=== PATIENT | female | born 1960 | race American Indian/Alaskan Native ===

== ENCOUNTER 2019-07-23 23:07 | Inpatient (IN) | payer SELFPAY ==
[2019-07-23] MEDS ORDERED: ATIVAN IV ONE (23:24)
[2019-07-23] MEDS ORDERED: ATIVAN ONE (23:24)
[2019-07-23] MEDS ORDERED: NACL 0.9% 1000 ML 1,000 ML IV ONE (23:32)
[2019-07-24 00:12] LABS: Hemoglobin 17.9 gm/dl (10.1-14.3); Mean Corpuscular HGB Conc 32 % (30-34); Mean Corpuscular Volume 104 fl (79-97); Platelet Count 521 K/mm3 (140-440); Red Blood Count 5.39 M/mm3 (3.65-5.03); Red Cell Distribution Width 16.4 % (13.2-15.2)
--- NOTE | 2019-07-24 00:15 | XRay Report ---
CHEST 1 VIEW 07/23/2019 11:39 PM INDICATION / CLINICAL INFORMATION: Altered Mental Status. COMPARISON: None available. FINDINGS: SUPPORT DEVICES: None. HEART / MEDIASTINUM: No significant abnormality. LUNGS / PLEURA: No significant pulmonary or pleural abnormality. No pneumothorax. ADDITIONAL FINDINGS: No significant additional findings. IMPRESSION: 1. No acute findings. Signer Name: Tej Young MD Signed: 07/24/2019 12:11 AM Workstation Name: [id number]
[2019-07-24 00:29] LABS: Calcium 9.5 mg/dL (8.4-10.2)
[2019-07-24 00:31] LABS: Hematocrit 55.9 % (30.3-42.9)
[2019-07-24] MEDS ORDERED: NACL 0.9% 1000 ML 1,000 ML IV ONE ×3 (00:34→02:00)
[2019-07-24] MEDS ORDERED: HumuLIN R IV ONE (00:36)
[2019-07-24] MEDS ORDERED: HumuLIN R 100 UNITS in NACL 0.9% 99 ML IV SCH (01:00)
--- NOTE | 2019-07-24 01:04 | Cat Scan Report ---
CT HEAD WITHOUT CONTRAST INDICATION / CLINICAL INFORMATION: Altered Mental Status. TECHNIQUE: All CT scans at this location are performed using CT dose reduction for ALARA by means of automated e xposure control. COMPARISON: None available. FINDINGS: Slightly limited secondary to motion artifact. HEMORRHAGE: None. EXTRA-AXIAL SPACES: Normal in size and morphology for the patient's age. VENTRICULAR SYSTEM: Normal in size and morphology for the patient's age. CEREBRAL PARENCHYMA: No significant abnormality. No acute territorial infarct. MIDLINE SHIFT OR HERNIATION: None. CEREBELLUM / BRAINSTEM: No significant abnormality. ORBITS: Normal as visualized. SOFT TISSUES of HEAD: No significant abnormality. CALVARIUM: No significant abnormality. PARANASAL SINUSES / MASTOID AIR CELLS: Normal as visualized. ADDITIONAL FINDINGS: None. IMPRESSION: 1. No acute intracranial abnormality. Signer Name: Tej Young MD Signed: 07/24/2019 12:59 AM Workstation Name: [id number]
[2019-07-24 01:15] LABS: Bacteria,Urine 2+ /HPF (Negative); Bilirubin,Urine NEG (Negative); Blood,Urine MOD (Negative); Color,Urine Yellow (Yellow); Mucus,Urine 1+ /HPF; Urobilinogen,Urine < 2.0 mg/dL (<2.0)
[2019-07-24 01:19] LABS: Amphetamine Screen,Urine PRESUMPTIVE NEGATIVE; Benzodiazepines Screen,Urine PRESUMPTIVE NEGATIVE; Cannabinoid Screen,Urine PRESUMPTIVE NEGATIVE; Cocaine Screen,Urine PRESUMPTIVE NEGATIVE; Methadone Screen,Urine PRESUMPTIVE NEGATIVE; Opiate Screen,Urine PRESUMPTIVE NEGATIVE
[2019-07-24 01:29] LABS: INR 1.92 (0.87-1.13)
--- NOTE | 2019-07-24 02:10 | Emergency Department Report ---
ED Altered Mental Status HPI - General Chief Complaint: Hyperglycemia Stated Complaint: DKA Time Seen by Provider: 07/23/19 23:32 Source: family, EMS Mode of arrival: Stretcher Limitations: Altered Mental Status - History of Present Illness Initial Comments: Mrs. Welch is a 58 yo female without previous significant past medical history who presents with initial generalized malaise. She has history of several months of polyuria and polydipsia. Her family members were concerned for diabetes. However patient did not want evaluation by physician. Several months ago she was evaluated by outside hospital for generalized symptoms such as facial swelling. Was given the presumed diagnosis of lupus. Family became more concerned for generalized illness and altered mental status. Due to mental status patient unable to give history. No reported history of drug alcohol use. MD Complaint: altered mental status, confusion -: Gradual, This evening Severity: severe Consistency of Symptoms: getting worse Context: diabetes (undiagnosed but suspected by family) Associated Symptoms: malaise - Related Data Allergies Allergy/AdvReac Type Severity Reaction Status Date / Time latex AdvReac Unknown Verified 07/23/19 23:16 ED Review of Systems ROS: Stated complaint: DKA Other details as noted in HPI Comment: Unobtainable due to pts medical conditions ED Past Medical Hx - Past Medical History Previous Medical History?: No - Social History Smoking Status: Unknown if ever smoked Substance Use Type: None ED Physical Exam - General Limitations: Altered Mental Status General appearance: lethargic, other (restless mumbling words thrashing about the bed, Kussmaul respirations) - Head Head exam: Present: atraumatic, normocephalic - Eye Eye exam: Present: other (sluggish pupils) - ENT ENT exam: Present: mucous membranes dry - Neck Neck exam: Present: normal inspection, full ROM. Absent: meningismus - Respiratory Respiratory exam: Present: other (Kussmaul respirations). Absent: wheezes, rales, rhonchi - Cardiovascular Cardiovascular Exam: Present: normal rhythm, tachycardia, normal heart sounds. Absent: systolic murmur, diastolic murmur, rubs, gallop - GI/Abdominal GI/Abdominal exam: Present: soft, normal bowel sounds. Absent: distended, tenderness, guarding, rebound - Extremities Exam Extremities exam: Present: normal inspection - Neurological Exam Neurological exam: Present: altered - Psychiatric Psychiatric exam: Present: flat affect - Skin Skin exam: Present: pallor. Absent: rash ED Course Vital Signs 07/23/19 07/23/19 07/23/19 23:16 23:30 23:32 Temperature 98.1 F Pulse Rate 147 H 146 H Respiratory 40 H 37 H Rate Blood Pressure 162/126 157/109 Blood Pressure 165/136 [Right] O2 Sat by Pulse Oximetry 07/23/19 07/23/19 07/24/19 23:46 23:50 00:22 Temperature Pulse Rate 149 H 143 H 137 H Respiratory 42 H 34 H 37 H Rate Blood Pressure 157/109 157/109 Blood Pressure 157/109 [Right] O2 Sat by Pulse 99 98 85 Oximetry 07/24/19 07/24/19 07/24/19 00:30 00:46 01:00 Temperature Pulse Rate 141 H 136 H 140 H Respiratory 40 H 41 H 32 H Rate Blood Pressure 176/120 176/120 157/109 Blood Pressure [Right] O2 Sat by Pulse 99 99 98 Oximetry - Lab Data Result diagrams: 07/23/19 23:48 07/23/19 23:48 Lab Results 07/23/19 07/23/19 07/24/19 Range/Units 23:48 23:48 00:56 WBC 11.6 H (4.5-11.0) K/mm3 RBC 5.39 H (3.65-5.03) M/mm3 Hgb 17.9 H (10.1-14.3) gm/dl Hct 55.9 H* (30.3-42.9) % MCV 104 H (79-97) fl MCH 33 H (28-32) pg MCHC 32 (30-34) % RDW 16.4 H (13.2-15.2) % Plt Count 521 H (140-440) K/mm3 Baso % (Auto) Architecture Faculty Member PT 21.6 H (12.2-14.9) Sec. INR 1.92 H (0.87-1.13) Sodium 128 L (137-145) mmol/L Potassium 4.7 (3.6-5.0) mmol/L Chloride 82.8 L (98-107) mmol/L Carbon Dioxide 5 L* (22-30) mmol/L Anion Gap 45 mmol/L BUN 21 H (7-17) mg/dL Creatinine 2.0 H (0.7-1.2) mg/dL Estimated GFR 31 ml/min BUN/Creatinine Ratio 11 % Glucose 722 H* (65-100) mg/dL Calcium 9.5 (8.4-10.2) mg/dL Phosphorus (2.5-4.5) mg/dL Magnesium (1.7-2.3) mg/dL Troponin T (0.00-0.029) ng/mL TSH (0.270-4.200) mlU/mL Urine Color (Yellow) Urine Turbidity (Clear) Urine pH (5.0-7.0) Ur Specific Sontag (1.003-1.030) Urine Protein (Negative) mg/dL Urine Glucose (UA) (Negative) mg/dL Urine Ketones (Negative) mg/dL Urine Blood (Negative) Urine Nitrite (Negative) Urine Bilirubin (Negative) Urine Urobilinogen (<2.0) mg/dL Ur Leukocyte Esterase (Negative) Urine WBC (Auto) (0.0-6.0) /HPF Urine RBC (Auto) (0.0-6.0) /HPF U Epithel Cells (Auto) (0-13.0) /HPF Urine Bacteria (Auto) (Negative) /HPF Urine Mucus /HPF Salicylates (2.8-20.0) mg/dL Urine Opiates Screen Urine Methadone Screen Acetaminophen (10.0-30.0) ug/mL Ur Barbiturates Screen Ur Phencyclidine Scrn Ur Amphetamines Screen U Benzodiazepines Scrn Urine Cocaine Screen U Marijuana (THC) Screen Drugs of Abuse Note Plasma/Serum Alcohol (0-0.07) % 07/24/19 07/24/19 07/24/19 Range/Units 00:56 00:56 00:56 WBC (4.5-11.0) K/mm3 RBC (3.65-5.03) M/mm3 Hgb (10.1-14.3) gm/dl Hct (30.3-42.9) % MCV (79-97) fl MCH (28-32) pg MCHC (30-34) % RDW (13.2-15.2) % Plt Count (140-440) K/mm3 Baso % (Auto) PT (12.2-14.9) Sec. INR (0.87-1.13) Sodium (137-145) mmol/L Potassium (3.6-5.0) mmol/L Chloride (98-107) mmol/L Carbon Dioxide (22-30) mmol/L Anion Gap mmol/L BUN (7-17) mg/dL Creatinine (0.7-1.2) mg/dL Estimated GFR ml/min BUN/Creatinine Ratio % Glucose (65-100) mg/dL Calcium (8.4-10.2) mg/dL Phosphorus (2.5-4.5) mg/dL Magnesium (1.7-2.3) mg/dL Troponin T (0.00-0.029) ng/mL TSH 2.900 (0.270-4.200) mlU/mL Urine Color (Yellow) Urine Turbidity (Clear) Urine pH (5.0-7.0) Ur Specific Sontag (1.003-1.030) Urine Protein (Negative) mg/dL Urine Glucose (UA) (Negative) mg/dL Urine Ketones (Negative) mg/dL Urine Blood (Negative) Urine Nitrite (Negative) Urine Bilirubin (Negative) Urine Urobilinogen (<2.0) mg/dL Ur Leukocyte Esterase (Negative) Urine WBC (Auto) (0.0-6.0) /HPF Urine RBC (Auto) (0.0-6.0) /HPF U Epithel Cells (Auto) (0-13.0) /HPF Urine Bacteria (Auto) (Negative) /HPF Urine Mucus /HPF Salicylates < 0.3 L (2.8-20.0) mg/dL Urine Opiates Screen Urine Methadone Screen Acetaminophen < 5.0 L (10.0-30.0) ug/mL Ur Barbiturates Screen Ur Phencyclidine Scrn Ur Amphetamines Screen U Benzodiazepines Scrn Urine Cocaine Screen U Marijuana (THC) Screen Drugs of Abuse Note Plasma/Serum Alcohol (0-0.07) % 07/24/19 07/24/19 07/24/19 Range/Units 00:56 00:57 00:57 WBC (4.5-11.0) K/mm3 RBC (3.65-5.03) M/mm3 Hgb (10.1-14.3) gm/dl Hct (30.3-42.9) % MCV (79-97) fl MCH (28-32) pg MCHC (30-34) % RDW (13.2-15.2) % Plt Count (140-440) K/mm3 Baso % (Auto) PT (12.2-14.9) Sec. INR (0.87-1.13) Sodium (137-145) mmol/L Potassium (3.6-5.0) mmol/L Chloride (98-107) mmol/L Carbon Dioxide (22-30) mmol/L Anion Gap mmol/L BUN (7-17) mg/dL Creatinine (0.7-1.2) mg/dL Estimated GFR ml/min BUN/Creatinine Ratio % Glucose (65-100) mg/dL Calcium (8.4-10.2) mg/dL Phosphorus (2.5-4.5) mg/dL Magnesium (1.7-2.3) mg/dL Troponin T (0.00-0.029) ng/mL TSH (0.270-4.200) mlU/mL Urine Color Yellow (Yellow) Urine Turbidity Cloudy (Clear) Urine pH 5.0 (5.0-7.0) Ur Specific Sontag 1.025 (1.003-1.030) Urine Protein 100 mg/dl (Negative) mg/dL Urine Glucose (UA) >=500 (Negative) mg/dL Urine Ketones 80 (Negative) mg/dL Urine Blood Mod (Negative) Urine Nitrite Neg (Negative) Urine Bilirubin Neg (Negative) Urine Urobilinogen < 2.0 (<2.0) mg/dL Ur Leukocyte Esterase Neg (Negative) Urine WBC (Auto) 10.0 H (0.0-6.0) /HPF Urine RBC (Auto) 5.0 (0.0-6.0) /HPF U Epithel Cells (Auto) 6.0 (0-13.0) /HPF Urine Bacteria (Auto) 2+ (Negative) /HPF Urine Mucus 1+ /HPF Salicylates (2.8-20.0) mg/dL Urine Opiates Screen Presumptive negative Urine Methadone Screen Presumptive negative Acetaminophen (10.0-30.0) ug/mL Ur Barbiturates Screen Presumptive negative Ur Phencyclidine Scrn Presumptive negative Ur Amphetamines Screen Presumptive negative U Benzodiazepines Scrn Presumptive negative Urine Cocaine Screen Presumptive negative U Marijuana (THC) Screen Presumptive negative Drugs of Abuse Note Disclamer Plasma/Serum Alcohol < 0.01 (0-0.07) % 07/24/19 07/24/19 Range/Units 00:57 00:57 WBC (4.5-11.0) K/mm3 RBC (3.65-5.03) M/mm3 Hgb (10.1-14.3) gm/dl Hct (30.3-42.9) % MCV (79-97) fl MCH (28-32) pg MCHC (30-34) % RDW (13.2-15.2) % Plt Count (140-440) K/mm3 Baso % (Auto) PT (12.2-14.9) Sec. INR (0.87-1.13) Sodium (137-145) mmol/L Potassium (3.6-5.0) mmol/L Chloride (98-107) mmol/L Carbon Dioxide (22-30) mmol/L Anion Gap mmol/L BUN (7-17) mg/dL Creatinine (0.7-1.2) mg/dL Estimated GFR ml/min BUN/Creatinine Ratio % Glucose (65-100) mg/dL Calcium (8.4-10.2) mg/dL Phosphorus 7.80 H (2.5-4.5) mg/dL Magnesium 2.90 H (1.7-2.3) mg/dL Troponin T 0.015 (0.00-0.029) ng/mL TSH (0.270-4.200) mlU/mL Urine Color (Yellow) Urine Turbidity (Clear) Urine pH (5.0-7.0) Ur Specific Sontag (1.003-1.030) Urine Protein (Negative) mg/dL Urine Glucose (UA) (Negative) mg/dL Urine Ketones (Negative) mg/dL Urine Blood (Negative) Urine Nitrite (Negative) Urine Bilirubin (Negative) Urine Urobilinogen (<2.0) mg/dL Ur Leukocyte Esterase (Negative) Urine WBC (Auto) (0.0-6.0) /HPF Urine RBC (Auto) (0.0-6.0) /HPF U Epithel Cells (Auto) (0-13.0) /HPF Urine Bacteria (Auto) (Negative) /HPF Urine Mucus /HPF Salicylates (2.8-20.0) mg/dL Urine Opiates Screen Urine Methadone Screen Acetaminophen (10.0-30.0) ug/mL Ur Barbiturates Screen Ur Phencyclidine Scrn Ur Amphetamines Screen U Benzodiazepines Scrn Urine Cocaine Screen U Marijuana (THC) Screen Drugs of Abuse Note Plasma/Serum Alcohol (0-0.07) % 07/24/19 02:07 EKG obtained Sinus Tachycardia 145 bpm nl axis prolonged QT intervals nl ST elevation diffuse ST depression upsloping segments - Radiology Data Radiology results: report reviewed CT head NAP Pcxr NAP - Medical Decision Making Mrs. Rocio Pickett presents with acute metabolic encephalopathy due to new onset DM/DKA. Given resuscitation with IVF, insulin infusion, insulin bolus, sodium bicarbonate. admitted to hospitalist service in critical condition Critical Care Time: Yes Critical care attestation.: If time is entered above; I have spent that time in minutes in the direct care of this critically ill patient, excluding procedure time. 40 minutes of critical care time excluding procedures were used in the care of the patient. Patient required multiple assessments and interventions. I updated family members. I reviewed the electronic medical record. I spoke with consultants involved in the care of the patient. ED Disposition Clinical Impression: Acute metabolic encephalopathy, DKA (diabetic ketoacidoses) Disposition: OP ADMIT IP TO THIS HOSP Is pt being admited?: Yes Does the pt Need Aspirin: No Condition: Stable
[2019-07-24 02:26] LABS: Alanine Aminotransferase 11 units/L (7-56); Albumin 4.1 g/dL (3.9-5)
[2019-07-24 02:37] LABS: Bilirubin,Direct < 0.2 mg/dL (0-0.2)
[2019-07-24] MEDS ORDERED: TYLENOL PO PRN (02:49)
[2019-07-24] MEDS ORDERED: ZOFRAN IV PRN (02:49)
[2019-07-24] MEDS ORDERED: SODIUM CHLORIDE FLUSH SYRINGE 10 ML IV PRN (02:49)
[2019-07-24] MEDS ORDERED: D50W (25GM) Syringe IV PRN ×2 (02:51→22:21)
[2019-07-24] MEDS ORDERED: NACL 0.9% 1000 ML 1,000 ML IV SCH (03:00)
[2019-07-24] MEDS ORDERED: D5/0.45NS 1,000 ML IV SCH (03:00)
--- NOTE | 2019-07-24 03:00 | History and Physical Report ---
History of Present Illness Date of examination: 07/24/19 History of present illness: 58-year-old woman with normal medical problems comes emergency room for evaluation. She has not seen a doctor in 30 years per family. 2 weeks ago she's been complaining of frequent urination, she thought she had a urinary tract infection was drinking a lot of hemorrhages. He states she also complain of weight loss and increased thirst. Patient is unable to give a history, status post IV Ativan, review of system unobtainable PAST MEDICAL HISTORY:none PAST SURGICAL HISTORY::none FAMILY HISTORY:hypertension, diabetes SOCIAL HISTORY: Denies tobacco, drugs, alcohol Medications and Allergies Allergies Allergy/AdvReac Type Severity Reaction Status Date / Time latex AdvReac Unknown Verified 07/23/19 23:16 Active Meds: Active Medications Acetaminophen (Tylenol) 650 mg PO Q4H PRN PRN Reason: Pain MILD(1-3)/Fever >100.5/DOWLING Dextrose (D50w (25gm) Syringe) 0 ml IV ONCE PRN PRN Reason: Hypoglycemia Enoxaparin Sodium (Lovenox) 30 mg SUB-Q QDAY RIP Insulin Human Regular 100 (units/ Sodium Chloride) 100 mls @ 14 mls/hr IV TITR RIP; Protocol Last Titration: 07/24/19 02:13 Dose: 8 units/hr, 8 mls/hr Documented by: Sodium Chloride (Nacl 0.9% 1000 Ml) 1,000 mls @ 999 mls/hr IV BOLUS ONE Stop: 07/24/19 03:00 Last Admin: 07/24/19 02:21 Dose: 999 mls/hr Documented by: Sodium Chloride (Nacl 0.9% 1000 Ml) 1,000 mls @ 150 mls/hr IV DIRECT RIP Dextrose/Sodium Chloride (D5/0.45ns) 1,000 mls @ 150 mls/hr IV DIRECT RIP Ceftriaxone Sodium (Rocephin/Ns 1 Gm/50 Ml) 1 gm in 50 mls @ 100 mls/hr IV Q24HR RIP; Protocol Ondansetron HCl (Zofran) 4 mg IV Q8H PRN PRN Reason: Nausea And Vomiting Sodium Chloride (Sodium Chloride Flush Syringe 10 Ml) 10 ml IV BID RIP Sodium Chloride (Sodium Chloride Flush Syringe 10 Ml) 10 ml IV PRN PRN PRN Reason: LINE FLUSH Exam - Physical Exam Narrative exam: General Apperance: The patient sitting in bed no acute distress HEENT: Normocephalic, atraumatic. Pupils equally round and reactive to light, extraocular movement intact, and no sclericterus or JVD or thyromegaly or nodule. Neck supple, no carotid bruit, mucous membranes dry, no exudate or erythema Heart: S1-S2, regular is rhythm Lungs: Clear to auscultation bilaterally, breathing comfortable Abdomen: Positive bowel sounds, soft, nontender, nondistended, no organomegaly Extremities: No edema cyanosis clubbing Skin: no rash, nodule, warm and dry Neuro:difficult to assess - Constitutional Vitals: Temp Pulse Resp BP Pulse Ox 98.1 F 129 H 32 H 142/58 100 07/23/19 23:30 07/24/19 02:00 07/24/19 02:00 07/24/19 01:30 07/24/19 02:00 Results - Labs CBC & Chem 7: 07/24/19 03:34 07/24/19 03:34 Labs: Abnormal lab results 07/23/19 07/23/19 07/23/19 Range/Units 23:21 23:48 23:48 WBC 11.6 H (4.5-11.0) K/mm3 RBC 5.39 H (3.65-5.03) M/mm3 Hgb 17.9 H (10.1-14.3) gm/dl Hct 55.9 H* (30.3-42.9) % MCV 104 H (79-97) fl MCH 33 H (28-32) pg RDW 16.4 H (13.2-15.2) % Plt Count 521 H (140-440) K/mm3 PT (12.2-14.9) Sec. INR (0.87-1.13) VBG pH (7.320-7.420) Sodium 128 L (137-145) mmol/L Chloride 82.8 L (98-107) mmol/L Carbon Dioxide 5 L* (22-30) mmol/L BUN 21 H (7-17) mg/dL Creatinine 2.0 H (0.7-1.2) mg/dL Glucose 722 H* (65-100) mg/dL POC Glucose 496 H (70-105) Lactic Acid (0.7-2.0) mmol/L Phosphorus (2.5-4.5) mg/dL Magnesium (1.7-2.3) mg/dL Alkaline Phosphatase (35-129) units/L Total Protein (6.3-8.2) g/dL Urine WBC (Auto) (0.0-6.0) /HPF Salicylates (2.8-20.0) mg/dL Acetaminophen (10.0-30.0) ug/mL 07/24/19 07/24/19 07/24/19 Range/Units 00:56 00:56 00:56 WBC (4.5-11.0) K/mm3 RBC (3.65-5.03) M/mm3 Hgb (10.1-14.3) gm/dl Hct (30.3-42.9) % MCV (79-97) fl MCH (28-32) pg RDW (13.2-15.2) % Plt Count (140-440) K/mm3 PT 21.6 H (12.2-14.9) Sec. INR 1.92 H (0.87-1.13) VBG pH (7.320-7.420) Sodium (137-145) mmol/L Chloride (98-107) mmol/L Carbon Dioxide (22-30) mmol/L BUN (7-17) mg/dL Creatinine (0.7-1.2) mg/dL Glucose (65-100) mg/dL POC Glucose (70-105) Lactic Acid (0.7-2.0) mmol/L Phosphorus (2.5-4.5) mg/dL Magnesium (1.7-2.3) mg/dL Alkaline Phosphatase (35-129) units/L Total Protein (6.3-8.2) g/dL Urine WBC (Auto) (0.0-6.0) /HPF Salicylates < 0.3 L (2.8-20.0) mg/dL Acetaminophen < 5.0 L (10.0-30.0) ug/mL 07/24/19 07/24/19 07/24/19 Range/Units 00:57 00:57 00:57 WBC (4.5-11.0) K/mm3 RBC (3.65-5.03) M/mm3 Hgb (10.1-14.3) gm/dl Hct (30.3-42.9) % MCV (79-97) fl MCH (28-32) pg RDW (13.2-15.2) % Plt Count (140-440) K/mm3 PT (12.2-14.9) Sec. INR (0.87-1.13) VBG pH (7.320-7.420) Sodium (137-145) mmol/L Chloride (98-107) mmol/L Carbon Dioxide (22-30) mmol/L BUN (7-17) mg/dL Creatinine (0.7-1.2) mg/dL Glucose (65-100) mg/dL POC Glucose (70-105) Lactic Acid (0.7-2.0) mmol/L Phosphorus 7.80 H (2.5-4.5) mg/dL Magnesium 2.90 H (1.7-2.3) mg/dL Alkaline Phosphatase 140 H (35-129) units/L Total Protein 8.5 H (6.3-8.2) g/dL Urine WBC (Auto) 10.0 H (0.0-6.0) /HPF Salicylates (2.8-20.0) mg/dL Acetaminophen (10.0-30.0) ug/mL 07/24/19 07/24/19 Range/Units 01:51 02:27 WBC (4.5-11.0) K/mm3 RBC (3.65-5.03) M/mm3 Hgb (10.1-14.3) gm/dl Hct (30.3-42.9) % MCV (79-97) fl MCH (28-32) pg RDW (13.2-15.2) % Plt Count (140-440) K/mm3 PT (12.2-14.9) Sec. INR (0.87-1.13) VBG pH 7.100 L* (7.320-7.420) Sodium (137-145) mmol/L Chloride (98-107) mmol/L Carbon Dioxide (22-30) mmol/L BUN (7-17) mg/dL Creatinine (0.7-1.2) mg/dL Glucose (65-100) mg/dL POC Glucose (70-105) Lactic Acid 7.30 H* (0.7-2.0) mmol/L Phosphorus (2.5-4.5) mg/dL Magnesium (1.7-2.3) mg/dL Alkaline Phosphatase (35-129) units/L Total Protein (6.3-8.2) g/dL Urine WBC (Auto) (0.0-6.0) /HPF Salicylates (2.8-20.0) mg/dL Acetaminophen (10.0-30.0) ug/mL - Imaging and Cardiology Chest x-ray: report reviewed Assessment and Plan Assessment DKA New-onset diabetes renal failure,? Acute Dehydration UTI coagulopathy Metabolic encephalopathy Plan Admit to medicine Start DKA protocol with insulin drip, IV fluid Monitor serial electrolytes, hemoglobin A1c Give bicarbonate, start IV Rocephin, follow urine culture Check ultrasound of the kidneys, consult critical care DVT prophylaxis, follow LFT
[2019-07-24] MEDS: ROCEPHIN/NS 1 GM/50 ML 1 GM/50 ML BAG IV SCH (03:14)
[2019-07-24 03:45] LABS: Basophils # (Auto) 0.1 K/mm3 (0.0-0.1); Basophils % (Auto) 0.9 % (0.0-1.8); Hematocrit 41.2 % (30.3-42.9); Hemoglobin 13.7 gm/dl (10.1-14.3); Lymphocytes # (Auto) 0.3 K/mm3 (1.2-5.4); Lymphocytes % (Auto) 2.8 % (13.4-35.0); Mean Corpuscular HGB Conc 33 % (30-34); Mean Corpuscular Volume 101 fl (79-97); Monocytes # (Auto) 1.2 K/mm3 (0.0-0.8); Monocytes % (Auto) 10.1 % (0.0-7.3); Platelet Count 344 K/mm3 (140-440); Red Blood Count 4.08 M/mm3 (3.65-5.03); Red Cell Distribution Width 15.7 % (13.2-15.2)
[2019-07-24 03:58] LABS: Calcium 6.8 mg/dL (8.4-10.2)
[2019-07-24 04:00] LABS: Alanine Aminotransferase 7 units/L (7-56); Albumin 2.8 g/dL (3.9-5); BUN/Creatinine Ratio 13; Blood Urea Nitrogen 19 mg/dL (7-17); Hemolysis Index 12
[2019-07-24 04:21] LABS: Bilirubin,Direct < 0.2 mg/dL (0-0.2); Calcium 7.1 mg/dL (8.4-10.2)
[2019-07-24 04:52] LABS: Basophils % (Manual) 0 % (0.0-1.8); Eosinophils % (Manual) 0 % (0.0-4.3); Total Cells Counted 100
[2019-07-24 04:55] LABS: Anisocytosis Few; Macrocytosis Rare; Platelet Estimate Consistent w Auto
[2019-07-24] MEDS ORDERED: K-DUR PO ONE (05:17)
--- NOTE | 2019-07-24 05:42 | Ultrasound Report ---
ULTRASOUND RENAL INDICATION: Renal failure. COMPARISON: No relevant prior imaging study available. FINDINGS: RIGHT KIDNEY: Size: 12.6 cm. Echogenicity: Echogenic. Cortical thickness: Normal. Hydronephrosis: None. Cyst or mass: Complex cyst with thick internal septations measuring 2.6 cm. Stones: None. LEFT KIDNEY: Size: 10.6 cm. Echogenicity: Echogenic. Cortical thickness: Normal. Hydronephrosis: None. Cyst or mass: None. Stones: None. Urinary Bladder: No significant abnormality. Free Fluid: None. Additional Findings: None. IMPRESSION 1. Complex right ovarian cyst. Follow-up ultrasound or contrast-enhanced CT/MRI is recommended in 6 months. 2. Echogenic kidneys characteristic for medical renal disease. No hydronephrosis.. Signer Name: Tej Young MD Signed: 07/24/2019 5:37 AM Workstation Name: [id number]
[2019-07-24] MEDS ORDERED: BUTT PASTE/LIDOCAINE TP PRN (05:46)
[2019-07-24] MEDS ORDERED: FLEET PR ONE (06:03)
[2019-07-24 06:12] LABS: INR 1.33 (0.87-1.13)
[2019-07-24 06:13] LABS: Partial Thromboplastin Time 23.8 Sec. (24.2-36.6)
[2019-07-24 06:35] LABS: Blood Urea Nitrogen TNR mg/dL (7-17)
[2019-07-24 06:36] LABS: BUN/Creatinine Ratio TNR; Calcium TNR mg/dL (8.4-10.2); Hemolysis Index TNR
[2019-07-24 07:33] LABS: Calcium 8.4 mg/dL (8.4-10.2)
--- NOTE | 2019-07-24 08:53 | Consultation ---
History of Present Illness Consult date: 07/24/19 Requesting physician: JESUS OVALLES Reason for consult: other (DKA, Acute renal failure, acute metabolic encephalopathy) History of present illness: 58-year-old woman with no known medical problems came into emergency room for evaluation. She has not seen a doctor in 30 years. 2 weeks ago she's been complaining of frequent urination, she thought she had a urinary tract infection was drinking a lot of fluids she states she also had weight loss and increased thirst. Was found to be in DKA in the ED, admitted to the ICU on insulin infusion and fluids. I have been consulted for critical care management. She states she feels better, still thirsty. Denies any chest pain, no shortness of breath, no nausea or vomiting. wants to know what she needs to do, so this does not happen again. PAST MEDICAL HISTORY:none PAST SURGICAL HISTORY::none FAMILY HISTORY:hypertension, diabetes SOCIAL HISTORY: Denies tobacco, drugs, alcohol Medications and Allergies Allergies Allergy/AdvReac Type Severity Reaction Status Date / Time latex AdvReac Unknown Verified 07/23/19 23:16 Home Medications Medication Instructions Recorded Confirmed Last Taken Type No Known Home Medications [No 07/24/19 07/24/19 Unknown History Reported Home Medications] Active Meds: Active Medications Acetaminophen (Tylenol) 650 mg PO Q4H PRN PRN Reason: Pain MILD(1-3)/Fever >100.5/DOWLING Dextrose (D50w (25gm) Syringe) 0 ml IV ONCE PRN PRN Reason: Hypoglycemia Enoxaparin Sodium (Lovenox) 40 mg SUB-Q QDAY@1000 RIP Insulin Human Regular 100 (units/ Sodium Chloride) 100 mls @ 14 mls/hr IV TITR RIP; Protocol Last Titration: 07/24/19 08:15 Dose: 5 units/hr, 5 mls/hr Documented by: Sodium Chloride (Nacl 0.9% 1000 Ml) 1,000 mls @ 150 mls/hr IV DIRECT RIP Dextrose/Sodium Chloride (D5/0.45ns) 1,000 mls @ 150 mls/hr IV DIRECT RIP Last Admin: 07/24/19 05:35 Dose: 150 mls/hr Documented by: Ceftriaxone Sodium (Rocephin/Ns 1 Gm/50 Ml) 1 gm in 50 mls @ 100 mls/hr IV Q24HR RIP; Protocol Last Admin: 07/24/19 03:14 Dose: 100 mls/hr Documented by: Lidocaine HCl (Butt Paste/Lidocaine) 1 applic TP PRN PRN PRN Reason: Rash Last Admin: 07/24/19 06:41 Dose: 1 applic Documented by: Ondansetron HCl (Zofran) 4 mg IV Q8H PRN PRN Reason: Nausea And Vomiting Sodium Chloride (Sodium Chloride Flush Syringe 10 Ml) 10 ml IV BID RIP Sodium Chloride (Sodium Chloride Flush Syringe 10 Ml) 10 ml IV PRN PRN PRN Reason: LINE FLUSH Review of Systems Constitutional: weight loss, anorexia, fatigue, lethargy, no fever, no chills, no sweats, no night sweats Ears, nose, mouth and throat: deferred Breasts: deferred Cardiovascular: lightheadedness, shortness of breath, no chest pain, no orthopnea, no palpitations, no rapid/irregular heart beat, no edema, no syncope Respiratory: cough, no hemoptysis, no shortness of breath, no dyspnea on exertion, no wheezing Gastrointestinal: nausea, no abdominal pain, no vomiting, no diarrhea, no change in bowel habits, no early satiety Genitourinary Female: urinary frequency Psychiatric: change in appetite, no anxiety, no change in sleep habits, no sleep disturbances, no insomnia Endocrine: polyphagia, excessive thirst, polydipsia, polyuria, nocturia, weight change Physical Examination Vital signs: Vital Signs Pulse Resp 147 H 40 H 07/23/19 23:16 07/23/19 23:16 General appearance: no acute distress, lethargic Eyes: non-icteric ENT: oropharynx dry Neck: supple, no lymphadenopathy, no JVD Effort: normal Ascultation: Bilateral: clear, diminished breath sounds Gastrointestinal: normoactive bowel sounds, soft, non-tender, non-distended Integumentary: normal Extremities: no cyanosis, no edema, pink and warm, pulses normal normal mental status, non-focal exam, pupils equal and round, motor strength normal and mood appropriate, affect normal Results - Laboratory Findings CBC and BMP: 07/24/19 03:34 07/24/19 19:41 PT/INR, D-dimer PT 16.1 Sec. (12.2-14.9) H 07/24/19 05:32 INR 1.33 (0.87-1.13) H 07/24/19 05:32 Abnormal lab findings: Abnormal Labs 07/23/19 07/23/19 07/23/19 23:21 23:48 23:48 WBC 11.6 H RBC 5.39 H Hgb 17.9 H Hct 55.9 H* MCV 104 H MCH 33 H RDW 16.4 H Plt Count 521 H Lymph % (Auto) [place] % (Auto) Lymph # [place] # Seg Neutrophils % Seg Neuts % (Manual) 81.0 H Lymphocytes % (Manual) 9.0 L Monocytes % (Manual) 10.0 H Seg Neutrophils # Seg Neutrophils # Man 9.4 H Lymphocytes # (Manual) 1.0 L Monocytes # (Manual) 1.2 H PT INR APTT VBG pH Sodium 128 L Potassium Chloride 82.8 L Carbon Dioxide 5 L* BUN 21 H Creatinine 2.0 H Glucose 722 H* POC Glucose 496 H Hemoglobin A1c Lactic Acid Calcium Phosphorus Magnesium Alkaline Phosphatase Total Protein Albumin Urine WBC (Auto) Salicylates Acetaminophen 07/24/19 07/24/19 07/24/19 00:56 00:56 00:56 WBC RBC Hgb Hct MCV MCH RDW Plt Count Lymph % (Auto) [place] % (Auto) Lymph # [place] # Seg Neutrophils % Seg Neuts % (Manual) Lymphocytes % (Manual) Monocytes % (Manual) Seg Neutrophils # Seg Neutrophils # Man Lymphocytes # (Manual) Monocytes # (Manual) PT 21.6 H INR 1.92 H APTT VBG pH Sodium Potassium Chloride Carbon Dioxide BUN Creatinine Glucose POC Glucose Hemoglobin A1c Lactic Acid Calcium Phosphorus Magnesium Alkaline Phosphatase Total Protein Albumin Urine WBC (Auto) Salicylates < 0.3 L Acetaminophen < 5.0 L 07/24/19 07/24/19 07/24/19 00:57 00:57 00:57 WBC RBC Hgb Hct MCV MCH RDW Plt Count Lymph % (Auto) [place] % (Auto) Lymph # [place] # Seg Neutrophils % Seg Neuts % (Manual) Lymphocytes % (Manual) Monocytes % (Manual) Seg Neutrophils # Seg Neutrophils # Man Lymphocytes # (Manual) Monocytes # (Manual) PT INR APTT VBG pH Sodium Potassium Chloride Carbon Dioxide BUN Creatinine Glucose POC Glucose Hemoglobin A1c Lactic Acid Calcium Phosphorus 7.80 H Magnesium 2.90 H Alkaline Phosphatase 140 H Total Protein 8.5 H Albumin Urine WBC (Auto) 10.0 H Salicylates Acetaminophen 07/24/19 07/24/19 07/24/19 01:51 02:19 02:27 WBC RBC Hgb Hct MCV MCH RDW Plt Count Lymph % (Auto) [place] % (Auto) Lymph # [place] # Seg Neutrophils % Seg Neuts % (Manual) Lymphocytes % (Manual) Monocytes % (Manual) Seg Neutrophils # Seg Neutrophils # Man Lymphocytes # (Manual) Monocytes # (Manual) PT INR APTT VBG pH 7.100 L* Sodium Potassium Chloride Carbon Dioxide BUN Creatinine Glucose POC Glucose > 500 H Hemoglobin A1c Lactic Acid 7.30 H* Calcium Phosphorus Magnesium Alkaline Phosphatase Total Protein Albumin Urine WBC (Auto) Salicylates Acetaminophen 07/24/19 07/24/19 07/24/19 03:16 03:18 03:34 WBC RBC Hgb Hct MCV MCH RDW Plt Count Lymph % (Auto) [place] % (Auto) Lymph # [place] # Seg Neutrophils % Seg Neuts % (Manual) Lymphocytes % (Manual) Monocytes % (Manual) Seg Neutrophils # Seg Neutrophils # Man Lymphocytes # (Manual) Monocytes # (Manual) PT INR APTT VBG pH Sodium Potassium Chloride Carbon Dioxide BUN Creatinine Glucose POC Glucose 407 H 433 H Hemoglobin A1c Lactic Acid 5.20 H* Calcium Phosphorus Magnesium Alkaline Phosphatase Total Protein Albumin Urine WBC (Auto) Salicylates Acetaminophen 07/24/19 07/24/19 07/24/19 03:34 03:34 03:34 WBC 11.8 H RBC Hgb Hct MCV 101 H MCH 34 H RDW 15.7 H Plt Count Lymph % (Auto) 2.8 L [place] % (Auto) 10.1 H Lymph # 0.3 L [place] # 1.2 H Seg Neutrophils % 86.2 H Seg Neuts % (Manual) Lymphocytes % (Manual) Monocytes % (Manual) Seg Neutrophils # 10.2 H Seg Neutrophils # Man Lymphocytes # (Manual) Monocytes # (Manual) PT INR APTT VBG pH Sodium Potassium Chloride Carbon Dioxide 6 L* BUN 19 H Creatinine 1.5 H Glucose 320 H POC Glucose Hemoglobin A1c 15.5 H Lactic Acid Calcium 7.1 L D Phosphorus Magnesium Alkaline Phosphatase Total Protein 5.9 L D Albumin 2.8 L Urine WBC (Auto) Salicylates Acetaminophen 07/24/19 07/24/19 07/24/19 03:34 04:20 05:22 WBC RBC Hgb Hct MCV MCH RDW Plt Count Lymph % (Auto) [place] % (Auto) Lymph # [place] # Seg Neutrophils % Seg Neuts % (Manual) Lymphocytes % (Manual) Monocytes % (Manual) Seg Neutrophils # Seg Neutrophils # Man Lymphocytes # (Manual) Monocytes # (Manual) PT INR APTT VBG pH Sodium Potassium 3.2 L Chloride Carbon Dioxide 7 L* BUN 19 H Creatinine 1.4 H Glucose 325 H POC Glucose 288 H 249 H Hemoglobin A1c Lactic Acid Calcium 6.8 L Phosphorus Magnesium Alkaline Phosphatase Total Protein Albumin Urine WBC (Auto) Salicylates Acetaminophen 07/24/19 07/24/19 07/24/19 05:32 05:32 06:24 WBC RBC Hgb Hct MCV MCH RDW Plt Count Lymph % (Auto) [place] % (Auto) Lymph # [place] # Seg Neutrophils % Seg Neuts % (Manual) Lymphocytes % (Manual) Monocytes % (Manual) Seg Neutrophils # Seg Neutrophils # Man Lymphocytes # (Manual) Monocytes # (Manual) PT 16.1 H INR 1.33 H APTT 23.8 L VBG pH Sodium Potassium Chloride Carbon Dioxide BUN Creatinine Glucose POC Glucose 201 H Hemoglobin A1c Lactic Acid Calcium Phosphorus 1.10 L D Magnesium Alkaline Phosphatase Total Protein Albumin Urine WBC (Auto) Salicylates Acetaminophen 07/24/19 07/24/19 07/24/19 06:51 06:51 07:21 WBC RBC Hgb Hct MCV MCH RDW Plt Count Lymph % (Auto) [place] % (Auto) Lymph # [place] # Seg Neutrophils % Seg Neuts % (Manual) Lymphocytes % (Manual) Monocytes % (Manual) Seg Neutrophils # Seg Neutrophils # Man Lymphocytes # (Manual) Monocytes # (Manual) PT INR APTT VBG pH Sodium Potassium Chloride Carbon Dioxide 12 L BUN 20 H Creatinine 1.4 H Glucose 219 H POC Glucose 213 H Hemoglobin A1c Lactic Acid 3.80 H* Calcium Phosphorus Magnesium Alkaline Phosphatase Total Protein Albumin Urine WBC (Auto) Salicylates Acetaminophen Assessment and Plan DKA New-onset diabetes Acute renal failure, most likely pre-renal Dehydration Acute metabolic acidosis,with lactic acidosis Metabolic encephalopathy ( improved) Obesity Coagulopathy -IV hydration -DKA protocol- insulin infusion, IV hydration, replete electrolytes per protocol -Serial BMPs, NPO for now -VTE prophylaxis, monitor for bleeding -Stop antibiotics and monitor off antibiotics closely -Avoid nephrotoxins, adjust all medications for GFR, CrCL -Fasting lipid panel, HbA1C -Diabetic education,life style modifications, weight loss -Follow up coagulation profile in the morning CONDITION: FAIR PROGNOSIS; GUARDED CODE STATUS: FULL Discussed care plan with RT and RN. Discussed with ICU-IDT team on rounds The high probability of a clinically significant, sudden or life threatening deterioration of the endocrine, renal, neurology system(s) required my full and direct attention, intervention and personal management. The aggregate critical care time was [35] minutes. This time is in addition to time spent performing reported procedures but includes the following: [x] Data Review and interpretation [x]Patient assessment and monitoring of vital signs [x] Documentation [x] Medication orders and management
[2019-07-24] MEDS ORDERED: KPHOS 30 MMOL in NACL 0.9% 500 ML 500 ML IV ONE (10:00)
[2019-07-24 10:01] LABS: Calcium 8.5 mg/dL (8.4-10.2)
[2019-07-24] MEDS: LOVENOX SUB-Q SCH (10:52)
[2019-07-24] MEDS: SODIUM CHLORIDE FLUSH SYRINGE 10 ML IV SCH (10:53)
[2019-07-24 11:59] LABS: Calcium 8.4 mg/dL (8.4-10.2)
--- NOTE | 2019-07-24 12:22 | Progress Note ---
Assessment and Plan Assessment and plan: DKA. Continue insulin drip and transitioned to long-acting insulin when anion gap is closed. Continue to monitor serial BMP. New-onset diabetes mellitus. Diabetic teaching. Acute renal failure. Etiology secondary to vasomotor nephropathy. Continue IV fluid hydration. Renal ultrasound shows no evidence of obstruction. UTI. Continue IV antibiotics. Follow-up blood and urine cultures. Coagulopathy. Toxic metabolic encephalopathy. Resolving. Continue to treat underlying causes. History Interval history: No new issues overnight. Hospitalist Physical - Constitutional Vitals: Temp Pulse Resp BP Pulse Ox 97.4 F L 98 H 23 116/69 100 07/24/19 08:32 07/24/19 10:50 07/24/19 10:50 07/24/19 10:50 07/24/19 10:50 General appearance: Present: no acute distress, well-nourished - EENT Eyes: Present: PERRL, EOM intact ENT: hearing intact, clear oral mucosa, dentition normal - Neck Neck: Present: supple, normal ROM - Respiratory Respiratory effort: normal Respiratory: bilateral: CTA - Cardiovascular Rhythm: regular Heart Sounds: Present: S1 & S2. Absent: gallop, rub - Extremities Extremities: no ischemia, No edema, Full ROM - Abdominal General gastrointestinal: soft, non-tender, non-distended, normal bowel sounds - Integumentary Integumentary: Present: clear, warm, dry - Neurologic Neurologic: CNII-XII intact, moves all extremities Results - Labs CBC & Chem 7: 07/24/19 03:34 07/24/19 11:11 Labs: Laboratory Last Values WBC 11.8 K/mm3 (4.5-11.0) H 07/24/19 03:34 RBC 4.08 M/mm3 (3.65-5.03) 07/24/19 03:34 Hgb 13.7 gm/dl (10.1-14.3) D 07/24/19 03:34 Hct 41.2 % (30.3-42.9) D 07/24/19 03:34 MCV 101 fl (79-97) H 07/24/19 03:34 MCH 34 pg (28-32) H 07/24/19 03:34 MCHC 33 % (30-34) 07/24/19 03:34 RDW 15.7 % (13.2-15.2) H 07/24/19 03:34 Plt Count 344 K/mm3 (140-440) 07/24/19 03:34 Lymph % (Auto) 2.8 % (13.4-35.0) L 07/24/19 03:34 [place] % (Auto) 10.1 % (0.0-7.3) H 07/24/19 03:34 Eos % (Auto) 0.0 % (0.0-4.3) 07/24/19 03:34 Baso % (Auto) 0.9 % (0.0-1.8) 07/24/19 03:34 Lymph # 0.3 K/mm3 (1.2-5.4) L 07/24/19 03:34 [place] # 1.2 K/mm3 (0.0-0.8) H 07/24/19 03:34 Eos # 0.0 K/mm3 (0.0-0.4) 07/24/19 03:34 Baso # 0.1 K/mm3 (0.0-0.1) 07/24/19 03:34 Add Manual Diff Complete 07/23/19 23:48 Total Counted 100 07/23/19 23:48 Seg Neutrophils % 86.2 % (40.0-70.0) H 07/24/19 03:34 Seg Neuts % (Manual) 81.0 % (40.0-70.0) H 07/23/19 23:48 0 % 07/23/19 23:48 9.0 % (13.4-35.0) L 07/23/19 23:48 Reactive Lymphs % (Man) 0 % 07/23/19 23:48 10.0 % (0.0-7.3) H 07/23/19 23:48 0 % (0.0-4.3) 07/23/19 23:48 0 % (0.0-1.8) 07/23/19 23:48 0 % 07/23/19 23:48 0 % 07/23/19 23:48 0 % 07/23/19 23:48 0 % 07/23/19 23:48 Nucleated RBC % Not Reportable 07/23/19 23:48 Seg Neutrophils # 10.2 K/mm3 (1.8-7.7) H 07/24/19 03:34 Seg Neutrophils # Man 9.4 K/mm3 (1.8-7.7) H 07/23/19 23:48 Band Neutrophils # 0.0 K/mm3 07/23/19 23:48 1.0 K/mm3 (1.2-5.4) L 07/23/19 23:48 Abs React Lymphs (Man) 0.0 K/mm3 07/23/19 23:48 1.2 K/mm3 (0.0-0.8) H 07/23/19 23:48 0.0 K/mm3 (0.0-0.4) 07/23/19 23:48 0.0 K/mm3 (0.0-0.1) 07/23/19 23:48 0.0 K/mm3 07/23/19 23:48 0.0 K/mm3 07/23/19 23:48 0.0 K/mm3 07/23/19 23:48 Blast Cells # 0.0 K/mm3 07/23/19 23:48 WBC Morphology Not Reportable 07/23/19 23:48 Hypersegmented Neuts Not Reportable 07/23/19 23:48 Hyposegmented Neuts Not Reportable 07/23/19 23:48 Hypogranular Neuts Not Reportable 07/23/19 23:48 Not Reportable 07/23/19 23:48 Not Reportable 07/23/19 23:48 Not Reportable 07/23/19 23:48 Not Reportable 07/23/19 23:48 Not Reportable 07/23/19 23:48 Not Reportable 07/23/19 23:48 Consistent w auto 07/23/19 23:48 Not Reportable 07/23/19 23:48 Plt Clumps, EDTA Not Reportable 07/23/19 23:48 Not Reportable 07/23/19 23:48 Not Reportable 07/23/19 23:48 Not Reportable 07/23/19 23:48 Plt Morphology Comment Not Reportable 07/23/19 23:48 RBC Morphology Not Reportable 07/23/19 23:48 Dimorphic RBCs Not Reportable 07/23/19 23:48 Not Reportable 07/23/19 23:48 Not Reportable 07/23/19 23:48 Not Reportable 07/23/19 23:48 Few 07/23/19 23:48 Not Reportable 07/23/19 23:48 Rare 07/23/19 23:48 Not Reportable 07/23/19 23:48 Not Reportable 07/23/19 23:48 Not Reportable 07/23/19 23:48 Not Reportable 07/23/19 23:48 Not Reportable 07/23/19 23:48 Not Reportable 07/23/19 23:48 Not Reportable 07/23/19 23:48 Not Reportable 07/23/19 23:48 Not Reportable 07/23/19 23:48 Not Reportable 07/23/19 23:48 Not Reportable 07/23/19 23:48 Not Reportable 07/23/19 23:48 Not Reportable 07/23/19 23:48 Acanthocytes (Spur) Not Reportable 07/23/19 23:48 Rouleaux Not Reportable 07/23/19 23:48 Not Reportable 07/23/19 23:48 Not Reportable 07/23/19 23:48 Not Reportable 07/23/19 23:48 Not Reportable 07/23/19 23:48 Hem Pathologist Commnt No 07/23/19 23:48 PT 16.1 Sec. (12.2-14.9) H 07/24/19 05:32 INR 1.33 (0.87-1.13) H 07/24/19 05:32 APTT 23.8 Sec. (24.2-36.6) L 07/24/19 05:32 VBG pH 7.100 (7.320-7.420) L* 07/24/19 02:27 Sodium 142 mmol/L (137-145) 07/24/19 11:11 Potassium 3.5 mmol/L (3.6-5.0) L 07/24/19 11:11 Chloride 105.1 mmol/L (98-107) 07/24/19 11:11 Carbon Dioxide 12 mmol/L (22-30) L 07/24/19 11:11 28 mmol/L 07/24/19 11:11 BUN 18 mg/dL (7-17) H 07/24/19 11:11 1.2 mg/dL (0.7-1.2) 07/24/19 11:11 Estimated GFR 56 ml/min 07/24/19 11:11 15 % 07/24/19 11:11 Glucose 226 mg/dL (65-100) H 07/24/19 11:11 POC Glucose 248 (70-105) H 07/24/19 11:18 15.5 % (4-6) H 07/24/19 03:34 Small (Negative) 07/24/19 00:57 Lactic Acid 3.80 mmol/L (0.7-2.0) H* 07/24/19 06:51 Calcium 8.4 mg/dL (8.4-10.2) 07/24/19 11:11 Phosphorus 1.10 mg/dL (2.5-4.5) L D 07/24/19 05:32 Magnesium 2.10 mg/dL (1.7-2.3) 07/24/19 05:32 0.20 mg/dL (0.1-1.2) 07/24/19 03:34 < 0.2 mg/dL (0-0.2) 07/24/19 03:34 0.0 mg/dL 07/24/19 03:34 AST 10 units/L (5-40) 07/24/19 03:34 ALT 7 units/L (7-56) 07/24/19 03:34 92 units/L (35-129) 07/24/19 03:34 56.0 umol/L (25-60) 07/24/19 01:51 0.015 ng/mL (0.00-0.029) 07/24/19 00:57 5.9 g/dL (6.3-8.2) L D 07/24/19 03:34 2.8 g/dL (3.9-5) L 07/24/19 03:34 0.9 % 07/24/19 03:34 TSH 2.900 mlU/mL (0.270-4.200) 07/24/19 00:56 Yellow (Yellow) 07/24/19 00:57 Cloudy (Clear) 07/24/19 00:57 5.0 (5.0-7.0) 07/24/19 00:57 Ur Specific [place] 1.025 (1.003-1.030) 07/24/19 00:57 100 mg/dl mg/dL (Negative) 07/24/19 00:57 >=500 mg/dL (Negative) 07/24/19 00:57 80 mg/dL (Negative) 07/24/19 00:57 Mod (Negative) 07/24/19 00:57 Neg (Negative) 07/24/19 00:57 Neg (Negative) 07/24/19 00:57 < 2.0 mg/dL (<2.0) 07/24/19 00:57 Ur Leukocyte Esterase Neg (Negative) 07/24/19 00:57 10.0 /HPF (0.0-6.0) H 07/24/19 00:57 5.0 /HPF (0.0-6.0) 07/24/19 00:57 U Epithel Cells (Auto) 6.0 /HPF (0-13.0) 07/24/19 00:57 2+ /HPF (Negative) 07/24/19 00:57 1+ /HPF 07/24/19 00:57 Salicylates < 0.3 mg/dL (2.8-20.0) L 07/24/19 00:56 Presumptive negative 07/24/19 00:57 Presumptive negative 07/24/19 00:57 Acetaminophen < 5.0 ug/mL (10.0-30.0) L 07/24/19 00:56 Ur Barbiturates Screen Presumptive negative 07/24/19 00:57 Ur Phencyclidine Scrn Presumptive negative 07/24/19 00:57 Ur Amphetamines Screen Presumptive negative 07/24/19 00:57 U Benzodiazepines Scrn Presumptive negative 07/24/19 00:57 Presumptive negative 07/24/19 00:57 U Marijuana (THC) Screen Presumptive negative 07/24/19 00:57 Disclamer 07/24/19 00:57 Plasma/Serum Alcohol < 0.01 % (0-0.07) 07/24/19 00:56 Active Medications - Current Medications Current Medications: Generic Name Dose Route Start Last Admin Trade Name Freq PRN Reason Stop Dose Admin Acetaminophen 650 mg 07/24/19 02:49 Tylenol PO Q4H PRN Pain MILD(1-3)/Fever >100.5/DOWLING Dextrose 0 ml 07/24/19 02:51 D50w (25gm) Syringe IV ONCE PRN Hypoglycemia Enoxaparin Sodium 40 mg 07/24/19 10:00 07/24/19 10:52 Lovenox SUB-Q 40 mg QDAY@1000 RIP Administration Insulin Human Regular 100 100 mls @ 14 mls/hr 07/24/19 01:00 07/24/19 11:40 units/ Sodium Chloride IV 12 units/hr TITR RIP 12 mls/hr Titration Protocol 14 UNITS/HR Sodium Chloride 1,000 mls @ 150 mls/hr 07/24/19 03:00 Nacl 0.9% 1000 Ml IV DIRECT RIP Dextrose/Sodium Chloride 1,000 mls @ 150 mls/hr 07/24/19 03:00 07/24/19 05:35 D5/0.45ns IV 150 mls/hr DIRECT RIP Administration Ceftriaxone Sodium 1 gm in 50 mls @ 100 mls/hr 07/24/19 02:55 07/24/19 03:14 Rocephin/Ns 1 Gm/50 Ml IV 100 mls/hr Q24HR RIP Administration Protocol Potassium Phosphate 30 mmol/ 510 mls @ 85 mls/hr 07/24/19 10:00 Sodium Chloride IV 07/24/19 15:59 ONCE ONE Lidocaine HCl 1 applic 07/24/19 05:46 07/24/19 06:41 Butt Paste/Lidocaine TP 1 applic PRN PRN Administration Rash Ondansetron HCl 4 mg 07/24/19 02:49 Zofran IV Q8H PRN Nausea And Vomiting Sodium Chloride 10 ml 07/24/19 10:00 07/24/19 10:53 Sodium Chloride Flush Syringe 10 Ml IV 10 ml BID RIP Administration Sodium Chloride 10 ml 07/24/19 02:49 Sodium Chloride Flush Syringe 10 Ml IV PRN PRN LINE FLUSH Nutrition/Malnutrition Assess - Dietary Evaluation Nutrition/Malnutrition Findings: Nutrition Notes Start: 07/24/19 10:48 Freq: Status: Active Protocol: Document 07/24/19 10:48 LM (Rec: 07/24/19 10:54 LM [email or web address]) Nutrition Notes Need for Assessment generated from: softball umpire Initial or Follow up Brief Note Current Diagnosis Diabetes Other Pertinent Diagnosis DKA, acute metabolic encephalopathy Labs/Tests BG 213 HgA1c 15.5 Height 5 ft 4 in Weight 104 kg [place] Body Weight (kg) 54.54 BMI 39.3 Subjective/Other Information RN screen for MST and new onset DM. Unable to speak to pt due to encephalopathy. Nutrition Intervention Follow-Up By: 07/25/19 Additional Comments F/U for MST assessment and DM education
[2019-07-24] MEDS ORDERED: D5W/0.45% NACL/KCL 20 MEQ 20 MEQ/1,000 ML BAG IV SCH (13:00)
[2019-07-24 20:26] LABS: BUN/Creatinine Ratio 15; Blood Urea Nitrogen 16 mg/dL (7-17); Calcium 8.4 mg/dL (8.4-10.2); Hemolysis Index 43
[2019-07-25] MEDS ORDERED: HumaLOG SUB-Q SCH
[2019-07-25] MEDS: SODIUM CHLORIDE FLUSH SYRINGE 10 ML IV SCH ×3 (00:06→23:16)
[2019-07-25 04:29] LABS: BUN/Creatinine Ratio 13; Blood Urea Nitrogen 14 mg/dL (7-17); Calcium 8.6 mg/dL (8.4-10.2); Hemolysis Index 9
[2019-07-25 05:53] LABS: Basophils # (Auto) 0.1 K/mm3 (0.0-0.1); Basophils % (Auto) 0.7 % (0.0-1.8); Eosinophils % (Auto) 0.1 % (0.0-4.3); Hematocrit 40.5 % (30.3-42.9); Hemoglobin 13.9 gm/dl (10.1-14.3); Lymphocytes % (Auto) 14.2 % (13.4-35.0); Mean Corpuscular HGB Conc 34 % (30-34); Mean Corpuscular Volume 99 fl (79-97); Platelet Count 328 K/mm3 (140-440); Red Blood Count 4.12 M/mm3 (3.65-5.03); Red Cell Distribution Width 15.9 % (13.2-15.2)
[2019-07-25 06:16] LABS: BUN/Creatinine Ratio 13; Blood Urea Nitrogen 14 mg/dL (7-17); Calcium 8.5 mg/dL (8.4-10.2); Hemolysis Index 90
[2019-07-25] MEDS: HumaLOG SUB-Q SCH ×4 (08:17→23:15)
--- NOTE | 2019-07-25 08:52 | Progress Note ---
Assessment and Plan DKA New-onset diabetes Acute renal failure, most likely pre-renal, improved Dehydration Acute metabolic acidosis,with lactic acidosis Metabolic encephalopathy ( improved) Obesity Coagulopathy -Switched to long acting insulin with pre-meal insulin -VTE prophylaxis, monitor for bleeding -Continue to monitor off antibiotics closely -Avoid nephrotoxins, adjust all medications for GFR, CrCL -Diabetic education,life style modifications, weight loss -Increase activity Has improved Discussed care plan with RT and RN. Discussed with ICU-IDT team on rounds OK to transfer out of the ICU Subjective Date of service: 07/25/19 Interval history: Patient is seen today for: DKA, Acute renal failure; acute metabolic encephalopathy Seen and examined at bedside; 24hour events reviewed; nursing and respiratory care staff consulted; no adverse overnight events reported to me; Vitals, labs, medications, chart reviewed. She is feeling much better, having breakfast. Denies any chest pain, no fevers or chills, no abdominal pain, no nausea or vomiting Objective Vital Signs - 12hr 07/24/19 07/24/19 07/24/19 21:00 22:00 23:00 Temperature Pulse Rate 105 H 100 H 102 H Respiratory 19 17 21 Rate Blood Pressure 103/64 104/63 96/55 O2 Sat by Pulse 100 100 100 Oximetry 07/24/19 07/25/19 07/25/19 23:51 00:00 01:00 Temperature 97.5 F L Pulse Rate 102 H 102 H Respiratory 15 19 Rate Blood Pressure 114/76 100/64 O2 Sat by Pulse 100 100 Oximetry 07/25/19 07/25/19 07/25/19 02:00 03:00 04:00 Temperature 98.3 F Pulse Rate 96 H 102 H 109 H Respiratory 18 17 23 Rate Blood Pressure 107/64 107/64 126/60 O2 Sat by Pulse 100 100 100 Oximetry 07/25/19 07/25/19 07/25/19 04:44 05:00 06:00 Temperature Pulse Rate 110 H 106 H Respiratory 22 21 25 H Rate Blood Pressure 109/48 100/57 O2 Sat by Pulse 100 100 99 Oximetry 07/25/19 07/25/19 07:00 08:00 Temperature Pulse Rate 104 H 105 H Respiratory 23 19 Rate Blood Pressure 95/48 98/46 O2 Sat by Pulse 99 100 Oximetry Constitutional: no acute distress, alert Eyes: non-icteric ENT: oropharynx moist Neck: supple, no lymphadenopathy, no JVD Effort: normal Ascultation: Bilateral: clear, diminished breath sounds Cardiovascular: regular rate and rhythm, other (S1,S2, no murnmurs, gallops or rubs) Gastrointestinal: normoactive bowel sounds, soft, non-tender, non-distended Integumentary: normal Extremities: no cyanosis, no edema, pink and warm, pulses normal Neurologic: normal mental status, non-focal exam, pupils equal and round, motor strength normal and Psychiatric: mood appropriate, affect normal CBC and BMP: 07/26/19 04:30 07/26/19 04:30 ABG, PT/INR, D-dimer: PT/INR, D-dimer PT 16.1 Sec. (12.2-14.9) H 07/24/19 05:32 INR 1.33 (0.87-1.13) H 07/24/19 05:32 Abnormal lab findings: Abnormal Labs 07/23/19 07/23/19 07/23/19 23:21 23:48 23:48 WBC 11.6 H RBC 5.39 H Hgb 17.9 H Hct 55.9 H* MCV 104 H MCH 33 H RDW 16.4 H Plt Count 521 H Lymph % (Auto) [place] % (Auto) Lymph # [place] # Seg Neutrophils % Seg Neuts % (Manual) 81.0 H Lymphocytes % (Manual) 9.0 L Monocytes % (Manual) 10.0 H Seg Neutrophils # Seg Neutrophils # Man 9.4 H Lymphocytes # (Manual) 1.0 L Monocytes # (Manual) 1.2 H PT INR APTT VBG pH Sodium 128 L Potassium Chloride 82.8 L Carbon Dioxide 5 L* BUN 21 H Creatinine 2.0 H Glucose 722 H* POC Glucose 496 H Hemoglobin A1c Lactic Acid Calcium Phosphorus Magnesium Alkaline Phosphatase Total Protein Albumin Urine WBC (Auto) Salicylates Acetaminophen 07/24/19 07/24/19 07/24/19 00:56 00:56 00:56 WBC RBC Hgb Hct MCV MCH RDW Plt Count Lymph % (Auto) [place] % (Auto) Lymph # [place] # Seg Neutrophils % Seg Neuts % (Manual) Lymphocytes % (Manual) Monocytes % (Manual) Seg Neutrophils # Seg Neutrophils # Man Lymphocytes # (Manual) Monocytes # (Manual) PT 21.6 H INR 1.92 H APTT VBG pH Sodium Potassium Chloride Carbon Dioxide BUN Creatinine Glucose POC Glucose Hemoglobin A1c Lactic Acid Calcium Phosphorus Magnesium Alkaline Phosphatase Total Protein Albumin Urine WBC (Auto) Salicylates < 0.3 L Acetaminophen < 5.0 L 07/24/19 07/24/19 07/24/19 00:57 00:57 00:57 WBC RBC Hgb Hct MCV MCH RDW Plt Count Lymph % (Auto) [place] % (Auto) Lymph # [place] # Seg Neutrophils % Seg Neuts % (Manual) Lymphocytes % (Manual) Monocytes % (Manual) Seg Neutrophils # Seg Neutrophils # Man Lymphocytes # (Manual) Monocytes # (Manual) PT INR APTT VBG pH Sodium Potassium Chloride Carbon Dioxide BUN Creatinine Glucose POC Glucose Hemoglobin A1c Lactic Acid Calcium Phosphorus 7.80 H Magnesium 2.90 H Alkaline Phosphatase 140 H Total Protein 8.5 H Albumin Urine WBC (Auto) 10.0 H Salicylates Acetaminophen 07/24/19 07/24/19 07/24/19 01:51 02:19 02:27 WBC RBC Hgb Hct MCV MCH RDW Plt Count Lymph % (Auto) [place] % (Auto) Lymph # [place] # Seg Neutrophils % Seg Neuts % (Manual) Lymphocytes % (Manual) Monocytes % (Manual) Seg Neutrophils # Seg Neutrophils # Man Lymphocytes # (Manual) Monocytes # (Manual) PT INR APTT VBG pH 7.100 L* Sodium Potassium Chloride Carbon Dioxide BUN Creatinine Glucose POC Glucose > 500 H Hemoglobin A1c Lactic Acid 7.30 H* Calcium Phosphorus Magnesium Alkaline Phosphatase Total Protein Albumin Urine WBC (Auto) Salicylates Acetaminophen 07/24/19 07/24/19 07/24/19 03:16 03:18 03:34 WBC RBC Hgb Hct MCV MCH RDW Plt Count Lymph % (Auto) [place] % (Auto) Lymph # [place] # Seg Neutrophils % Seg Neuts % (Manual) Lymphocytes % (Manual) Monocytes % (Manual) Seg Neutrophils # Seg Neutrophils # Man Lymphocytes # (Manual) Monocytes # (Manual) PT INR APTT VBG pH Sodium Potassium Chloride Carbon Dioxide BUN Creatinine Glucose POC Glucose 407 H 433 H Hemoglobin A1c Lactic Acid 5.20 H* Calcium Phosphorus Magnesium Alkaline Phosphatase Total Protein Albumin Urine WBC (Auto) Salicylates Acetaminophen 07/24/19 07/24/19 07/24/19 03:34 03:34 03:34 WBC 11.8 H RBC Hgb Hct MCV 101 H MCH 34 H RDW 15.7 H Plt Count Lymph % (Auto) 2.8 L [place] % (Auto) 10.1 H Lymph # 0.3 L [place] # 1.2 H Seg Neutrophils % 86.2 H Seg Neuts % (Manual) Lymphocytes % (Manual) Monocytes % (Manual) Seg Neutrophils # 10.2 H Seg Neutrophils # Man Lymphocytes # (Manual) Monocytes # (Manual) PT INR APTT VBG pH Sodium Potassium Chloride Carbon Dioxide 6 L* BUN 19 H Creatinine 1.5 H Glucose 320 H POC Glucose Hemoglobin A1c 15.5 H Lactic Acid Calcium 7.1 L D Phosphorus Magnesium Alkaline Phosphatase Total Protein 5.9 L D Albumin 2.8 L Urine WBC (Auto) Salicylates Acetaminophen 07/24/19 07/24/19 07/24/19 03:34 04:20 05:22 WBC RBC Hgb Hct MCV MCH RDW Plt Count Lymph % (Auto) [place] % (Auto) Lymph # [place] # Seg Neutrophils % Seg Neuts % (Manual) Lymphocytes % (Manual) Monocytes % (Manual) Seg Neutrophils # Seg Neutrophils # Man Lymphocytes # (Manual) Monocytes # (Manual) PT INR APTT VBG pH Sodium Potassium 3.2 L Chloride Carbon Dioxide 7 L* BUN 19 H Creatinine 1.4 H Glucose 325 H POC Glucose 288 H 249 H Hemoglobin A1c Lactic Acid Calcium 6.8 L Phosphorus Magnesium Alkaline Phosphatase Total Protein Albumin Urine WBC (Auto) Salicylates Acetaminophen 07/24/19 07/24/19 07/24/19 05:32 05:32 06:24 WBC RBC Hgb Hct MCV MCH RDW Plt Count Lymph % (Auto) [place] % (Auto) Lymph # [place] # Seg Neutrophils % Seg Neuts % (Manual) Lymphocytes % (Manual) Monocytes % (Manual) Seg Neutrophils # Seg Neutrophils # Man Lymphocytes # (Manual) Monocytes # (Manual) PT 16.1 H INR 1.33 H APTT 23.8 L VBG pH Sodium Potassium Chloride Carbon Dioxide BUN Creatinine Glucose POC Glucose 201 H Hemoglobin A1c Lactic Acid Calcium Phosphorus 1.10 L D Magnesium Alkaline Phosphatase Total Protein Albumin Urine WBC (Auto) Salicylates Acetaminophen 07/24/19 07/24/19 07/24/19 06:51 06:51 07:21 WBC RBC Hgb Hct MCV MCH RDW Plt Count Lymph % (Auto) [place] % (Auto) Lymph # [place] # Seg Neutrophils % Seg Neuts % (Manual) Lymphocytes % (Manual) Monocytes % (Manual) Seg Neutrophils # Seg Neutrophils # Man Lymphocytes # (Manual) Monocytes # (Manual) PT INR APTT VBG pH Sodium Potassium Chloride Carbon Dioxide 12 L BUN 20 H Creatinine 1.4 H Glucose 219 H POC Glucose 213 H Hemoglobin A1c Lactic Acid 3.80 H* Calcium Phosphorus Magnesium Alkaline Phosphatase Total Protein Albumin Urine WBC (Auto) Salicylates Acetaminophen 07/24/19 07/24/19 07/24/19 08:17 09:20 09:43 WBC RBC Hgb Hct MCV MCH RDW Plt Count Lymph % (Auto) [place] % (Auto) Lymph # [place] # Seg Neutrophils % Seg Neuts % (Manual) Lymphocytes % (Manual) Monocytes % (Manual) Seg Neutrophils # Seg Neutrophils # Man Lymphocytes # (Manual) Monocytes # (Manual) PT INR APTT VBG pH Sodium Potassium Chloride Carbon Dioxide 11 L BUN 19 H Creatinine Glucose 212 H POC Glucose 225 H 220 H Hemoglobin A1c Lactic Acid Calcium Phosphorus Magnesium Alkaline Phosphatase Total Protein Albumin Urine WBC (Auto) Salicylates Acetaminophen 07/24/19 07/24/19 07/24/19 10:06 11:11 11:18 WBC RBC Hgb Hct MCV MCH RDW Plt Count Lymph % (Auto) [place] % (Auto) Lymph # [place] # Seg Neutrophils % Seg Neuts % (Manual) Lymphocytes % (Manual) Monocytes % (Manual) Seg Neutrophils # Seg Neutrophils # Man Lymphocytes # (Manual) Monocytes # (Manual) PT INR APTT VBG pH Sodium Potassium 3.5 L Chloride Carbon Dioxide 12 L BUN 18 H Creatinine Glucose 226 H POC Glucose 244 H 248 H Hemoglobin A1c Lactic Acid Calcium Phosphorus Magnesium Alkaline Phosphatase Total Protein Albumin Urine WBC (Auto) Salicylates Acetaminophen 07/24/19 07/24/19 07/24/19 12:25 13:16 14:10 WBC RBC Hgb Hct MCV MCH RDW Plt Count Lymph % (Auto) [place] % (Auto) Lymph # [place] # Seg Neutrophils % Seg Neuts % (Manual) Lymphocytes % (Manual) Monocytes % (Manual) Seg Neutrophils # Seg Neutrophils # Man Lymphocytes # (Manual) Monocytes # (Manual) PT INR APTT VBG pH Sodium Potassium Chloride Carbon Dioxide BUN Creatinine Glucose POC Glucose 184 H 161 H 130 H Hemoglobin A1c Lactic Acid Calcium Phosphorus Magnesium Alkaline Phosphatase Total Protein Albumin Urine WBC (Auto) Salicylates Acetaminophen 07/24/19 07/24/19 07/24/19 15:12 16:29 19:37 WBC RBC Hgb Hct MCV MCH RDW Plt Count Lymph % (Auto) [place] % (Auto) Lymph # [place] # Seg Neutrophils % Seg Neuts % (Manual) Lymphocytes % (Manual) Monocytes % (Manual) Seg Neutrophils # Seg Neutrophils # Man Lymphocytes # (Manual) Monocytes # (Manual) PT INR APTT VBG pH Sodium Potassium Chloride Carbon Dioxide BUN Creatinine Glucose POC Glucose 157 H 143 H 143 H Hemoglobin A1c Lactic Acid Calcium Phosphorus Magnesium Alkaline Phosphatase Total Protein Albumin Urine WBC (Auto) Salicylates Acetaminophen 07/24/19 07/24/19 07/24/19 19:41 20:31 22:15 WBC RBC Hgb Hct MCV MCH RDW Plt Count Lymph % (Auto) [place] % (Auto) Lymph # [place] # Seg Neutrophils % Seg Neuts % (Manual) Lymphocytes % (Manual) Monocytes % (Manual) Seg Neutrophils # Seg Neutrophils # Man Lymphocytes # (Manual) Monocytes # (Manual) PT INR APTT VBG pH Sodium Potassium Chloride Carbon Dioxide 15 L BUN Creatinine Glucose 166 H POC Glucose 179 H 187 H Hemoglobin A1c Lactic Acid Calcium Phosphorus Magnesium Alkaline Phosphatase Total Protein Albumin Urine WBC (Auto) Salicylates Acetaminophen 07/24/19 07/25/19 07/25/19 23:53 03:18 05:14 WBC RBC Hgb Hct MCV 99 H MCH 34 H RDW 15.9 H Plt Count Lymph % (Auto) [place] % (Auto) 14.0 H Lymph # 1.0 L [place] # 1.0 H Seg Neutrophils % 71.0 H Seg Neuts % (Manual) Lymphocytes % (Manual) Monocytes % (Manual) Seg Neutrophils # Seg Neutrophils # Man Lymphocytes # (Manual) Monocytes # (Manual) PT INR APTT VBG pH Sodium Potassium Chloride Carbon Dioxide 15 L BUN Creatinine Glucose 261 H POC Glucose 215 H Hemoglobin A1c Lactic Acid Calcium Phosphorus Magnesium Alkaline Phosphatase Total Protein Albumin Urine WBC (Auto) Salicylates Acetaminophen 07/25/19 05:14 WBC RBC Hgb Hct MCV MCH RDW Plt Count Lymph % (Auto) [place] % (Auto) Lymph # [place] # Seg Neutrophils % Seg Neuts % (Manual) Lymphocytes % (Manual) Monocytes % (Manual) Seg Neutrophils # Seg Neutrophils # Man Lymphocytes # (Manual) Monocytes # (Manual) PT INR APTT VBG pH Sodium 136 L Potassium Chloride Carbon Dioxide 12 L BUN Creatinine Glucose 255 H POC Glucose Hemoglobin A1c Lactic Acid Calcium Phosphorus Magnesium Alkaline Phosphatase Total Protein Albumin Urine WBC (Auto) Salicylates Acetaminophen
[2019-07-25] MEDS: LOVENOX SUB-Q SCH (09:35)
--- NOTE | 2019-07-25 14:37 | Progress Note ---
Assessment and Plan Assessment and plan: DKA. Resolved. The patient will be transitioned to long-acting insulin 70/30 20 units twice a day. New-onset diabetes mellitus. Diabetic teaching. Acute renal failure. Resolved. Etiology secondary to vasomotor nephropathy. Continue IV fluid hydration. Renal ultrasound shows no evidence of obstruction. UTI. Continue IV antibiotics. Follow-up blood and urine cultures. Coagulopathy. Toxic metabolic encephalopathy. Resolving. Continue to treat underlying causes. History Interval history: No new issues overnight. Hospitalist Physical - Constitutional Vitals: Temp Pulse Resp BP Pulse Ox 98.1 F 110 H 12 119/60 100 07/25/19 12:00 07/25/19 14:01 07/25/19 14:01 07/25/19 14:01 07/25/19 14:01 General appearance: Present: no acute distress, well-nourished - EENT Eyes: Present: PERRL, EOM intact ENT: hearing intact, clear oral mucosa, dentition normal - Neck Neck: Present: supple, normal ROM - Respiratory Respiratory effort: normal Respiratory: bilateral: CTA - Cardiovascular Rhythm: regular Heart Sounds: Present: S1 & S2. Absent: gallop, rub - Extremities Extremities: no ischemia, No edema, Full ROM - Abdominal General gastrointestinal: soft, non-tender, non-distended, normal bowel sounds - Integumentary Integumentary: Present: clear, warm, dry - Neurologic Neurologic: CNII-XII intact, moves all extremities Results - Labs CBC & Chem 7: 07/25/19 05:14 07/25/19 05:14 Labs: Laboratory Last Values WBC 6.9 K/mm3 (4.5-11.0) 07/25/19 05:14 RBC 4.12 M/mm3 (3.65-5.03) 07/25/19 05:14 Hgb 13.9 gm/dl (10.1-14.3) 07/25/19 05:14 Hct 40.5 % (30.3-42.9) 07/25/19 05:14 MCV 99 fl (79-97) H 07/25/19 05:14 MCH 34 pg (28-32) H 07/25/19 05:14 MCHC 34 % (30-34) 07/25/19 05:14 RDW 15.9 % (13.2-15.2) H 07/25/19 05:14 Plt Count 328 K/mm3 (140-440) 07/25/19 05:14 Lymph % (Auto) 14.2 % (13.4-35.0) 07/25/19 05:14 [place] % (Auto) 14.0 % (0.0-7.3) H 07/25/19 05:14 Eos % (Auto) 0.1 % (0.0-4.3) 07/25/19 05:14 Baso % (Auto) 0.7 % (0.0-1.8) 07/25/19 05:14 Lymph # 1.0 K/mm3 (1.2-5.4) L 07/25/19 05:14 [place] # 1.0 K/mm3 (0.0-0.8) H 07/25/19 05:14 Eos # 0.0 K/mm3 (0.0-0.4) 07/25/19 05:14 Baso # 0.1 K/mm3 (0.0-0.1) 07/25/19 05:14 Add Manual Diff Complete 07/23/19 23:48 Total Counted 100 07/23/19 23:48 Seg Neutrophils % 71.0 % (40.0-70.0) H 07/25/19 05:14 Seg Neuts % (Manual) 81.0 % (40.0-70.0) H 07/23/19 23:48 0 % 07/23/19 23:48 9.0 % (13.4-35.0) L 07/23/19 23:48 Reactive Lymphs % (Man) 0 % 07/23/19 23:48 10.0 % (0.0-7.3) H 07/23/19 23:48 0 % (0.0-4.3) 07/23/19 23:48 0 % (0.0-1.8) 07/23/19 23:48 0 % 07/23/19 23:48 0 % 07/23/19 23:48 0 % 07/23/19 23:48 0 % 07/23/19 23:48 Nucleated RBC % Not Reportable 07/23/19 23:48 Seg Neutrophils # 4.9 K/mm3 (1.8-7.7) 07/25/19 05:14 Seg Neutrophils # Man 9.4 K/mm3 (1.8-7.7) H 07/23/19 23:48 Band Neutrophils # 0.0 K/mm3 07/23/19 23:48 1.0 K/mm3 (1.2-5.4) L 07/23/19 23:48 Abs React Lymphs (Man) 0.0 K/mm3 07/23/19 23:48 1.2 K/mm3 (0.0-0.8) H 07/23/19 23:48 0.0 K/mm3 (0.0-0.4) 07/23/19 23:48 0.0 K/mm3 (0.0-0.1) 07/23/19 23:48 0.0 K/mm3 07/23/19 23:48 0.0 K/mm3 07/23/19 23:48 0.0 K/mm3 07/23/19 23:48 Blast Cells # 0.0 K/mm3 07/23/19 23:48 WBC Morphology Not Reportable 07/23/19 23:48 Hypersegmented Neuts Not Reportable 07/23/19 23:48 Hyposegmented Neuts Not Reportable 07/23/19 23:48 Hypogranular Neuts Not Reportable 07/23/19 23:48 Not Reportable 07/23/19 23:48 Not Reportable 07/23/19 23:48 Not Reportable 07/23/19 23:48 Not Reportable 07/23/19 23:48 Not Reportable 07/23/19 23:48 Not Reportable 07/23/19 23:48 Consistent w auto 07/23/19 23:48 Not Reportable 07/23/19 23:48 Plt Clumps, EDTA Not Reportable 07/23/19 23:48 Not Reportable 07/23/19 23:48 Not Reportable 07/23/19 23:48 Not Reportable 07/23/19 23:48 Plt Morphology Comment Not Reportable 07/23/19 23:48 RBC Morphology Not Reportable 07/23/19 23:48 Dimorphic RBCs Not Reportable 07/23/19 23:48 Not Reportable 07/23/19 23:48 Not Reportable 07/23/19 23:48 Not Reportable 07/23/19 23:48 Few 07/23/19 23:48 Not Reportable 07/23/19 23:48 Rare 07/23/19 23:48 Not Reportable 07/23/19 23:48 Not Reportable 07/23/19 23:48 Not Reportable 07/23/19 23:48 Not Reportable 07/23/19 23:48 Not Reportable 07/23/19 23:48 Not Reportable 07/23/19 23:48 Not Reportable 07/23/19 23:48 Not Reportable 07/23/19 23:48 Not Reportable 07/23/19 23:48 Not Reportable 07/23/19 23:48 Not Reportable 07/23/19 23:48 Not Reportable 07/23/19 23:48 Not Reportable 07/23/19 23:48 Acanthocytes (Spur) Not Reportable 07/23/19 23:48 Rouleaux Not Reportable 07/23/19 23:48 Not Reportable 07/23/19 23:48 Not Reportable 07/23/19 23:48 Not Reportable 07/23/19 23:48 Not Reportable 07/23/19 23:48 Hem Pathologist Commnt No 07/23/19 23:48 PT 16.1 Sec. (12.2-14.9) H 07/24/19 05:32 INR 1.33 (0.87-1.13) H 07/24/19 05:32 APTT 23.8 Sec. (24.2-36.6) L 07/24/19 05:32 VBG pH 7.100 (7.320-7.420) L* 07/24/19 02:27 Sodium 136 mmol/L (137-145) L 07/25/19 05:14 Potassium 3.9 mmol/L (3.6-5.0) 07/25/19 05:14 Chloride 103.8 mmol/L (98-107) 07/25/19 05:14 Carbon Dioxide 12 mmol/L (22-30) L 07/25/19 05:14 24 mmol/L 07/25/19 05:14 BUN 14 mg/dL (7-17) 07/25/19 05:14 1.1 mg/dL (0.7-1.2) 07/25/19 05:14 Estimated GFR > 60 ml/min 07/25/19 05:14 13 % 07/25/19 05:14 Glucose 255 mg/dL (65-100) H 07/25/19 05:14 POC Glucose 215 (70-105) H 07/24/19 23:53 15.5 % (4-6) H 07/24/19 03:34 Small (Negative) 07/24/19 00:57 Lactic Acid 1.50 mmol/L (0.7-2.0) 07/24/19 19:41 Calcium 8.5 mg/dL (8.4-10.2) 07/25/19 05:14 Phosphorus 1.10 mg/dL (2.5-4.5) L D 07/24/19 05:32 Magnesium 2.10 mg/dL (1.7-2.3) 07/24/19 05:32 0.20 mg/dL (0.1-1.2) 07/24/19 03:34 < 0.2 mg/dL (0-0.2) 07/24/19 03:34 0.0 mg/dL 07/24/19 03:34 AST 10 units/L (5-40) 07/24/19 03:34 ALT 7 units/L (7-56) 07/24/19 03:34 92 units/L (35-129) 07/24/19 03:34 56.0 umol/L (25-60) 07/24/19 01:51 0.015 ng/mL (0.00-0.029) 07/24/19 00:57 5.9 g/dL (6.3-8.2) L D 07/24/19 03:34 2.8 g/dL (3.9-5) L 07/24/19 03:34 0.9 % 07/24/19 03:34 TSH 2.900 mlU/mL (0.270-4.200) 07/24/19 00:56 Yellow (Yellow) 07/24/19 00:57 Cloudy (Clear) 07/24/19 00:57 5.0 (5.0-7.0) 07/24/19 00:57 Ur Specific [place] 1.025 (1.003-1.030) 07/24/19 00:57 100 mg/dl mg/dL (Negative) 07/24/19 00:57 >=500 mg/dL (Negative) 07/24/19 00:57 80 mg/dL (Negative) 07/24/19 00:57 Mod (Negative) 07/24/19 00:57 Neg (Negative) 07/24/19 00:57 Neg (Negative) 07/24/19 00:57 < 2.0 mg/dL (<2.0) 07/24/19 00:57 Ur Leukocyte Esterase Neg (Negative) 07/24/19 00:57 10.0 /HPF (0.0-6.0) H 07/24/19 00:57 5.0 /HPF (0.0-6.0) 07/24/19 00:57 U Epithel Cells (Auto) 6.0 /HPF (0-13.0) 07/24/19 00:57 2+ /HPF (Negative) 07/24/19 00:57 1+ /HPF 07/24/19 00:57 Salicylates < 0.3 mg/dL (2.8-20.0) L 07/24/19 00:56 Presumptive negative 07/24/19 00:57 Presumptive negative 07/24/19 00:57 Acetaminophen < 5.0 ug/mL (10.0-30.0) L 07/24/19 00:56 Ur Barbiturates Screen Presumptive negative 07/24/19 00:57 Ur Phencyclidine Scrn Presumptive negative 07/24/19 00:57 Ur Amphetamines Screen Presumptive negative 07/24/19 00:57 U Benzodiazepines Scrn Presumptive negative 07/24/19 00:57 Presumptive negative 07/24/19 00:57 U Marijuana (THC) Screen Presumptive negative 07/24/19 00:57 Disclamer 07/24/19 00:57 Plasma/Serum Alcohol < 0.01 % (0-0.07) 07/24/19 00:56 Active Medications - Current Medications Current Medications: Generic Name Dose Route Start Last Admin Trade Name Freq PRN Reason Stop Dose Admin Acetaminophen 650 mg 07/24/19 02:49 Tylenol PO Q4H PRN Pain MILD(1-3)/Fever >100.5/DOWLING Dextrose 50 ml 07/24/19 22:21 D50w (25gm) Syringe IV PRN PRN Hypoglycemia Enoxaparin Sodium 40 mg 07/24/19 10:00 07/25/19 09:35 Lovenox SUB-Q 40 mg QDAY@1000 RIP Administration Ceftriaxone Sodium 1 gm in 50 mls @ 100 mls/hr 07/24/19 02:55 07/24/19 03:14 Rocephin/Ns 1 Gm/50 Ml IV 07/28/19 10:29 100 mls/hr Q24HR RIP Administration Protocol Insulin Human Isoph/Insulin Regular 20 unit 07/25/19 09:00 07/25/19 09:35 Humulin 70/30 SUB-Q 20 unit BIDDIAB RIP Administration Insulin Human Lispro 0 unit 07/25/19 07:30 07/25/19 12:12 Humalog SUB-Q 4 unit ACHS RIP Administration Protocol Lidocaine HCl 1 applic 07/24/19 05:46 07/24/19 06:41 Butt Paste/Lidocaine TP 1 applic PRN PRN Administration Rash Ondansetron HCl 4 mg 07/24/19 02:49 Zofran IV Q8H PRN Nausea And Vomiting Sodium Chloride 10 ml 07/24/19 10:00 07/25/19 09:36 Sodium Chloride Flush Syringe 10 Ml IV 10 ml BID RIP Administration Sodium Chloride 10 ml 07/24/19 02:49 Sodium Chloride Flush Syringe 10 Ml IV PRN PRN LINE FLUSH Nutrition/Malnutrition Assess - Dietary Evaluation Nutrition/Malnutrition Findings: Nutrition Notes Start: 07/24/19 10:48 Freq: Status: Active Protocol: Document 07/25/19 10:48 LM (Rec: 07/25/19 11:03 LM [email or web address]) Nutrition Notes Initial or Follow up Assessment Current Diagnosis Diabetes Other Pertinent Diagnosis DKA, acute metabolic encephalopathy Current Diet Consistent CHO Labs/Tests BG 255 Hgb A1C 15.5 Pertinent Medications Reviewed Height 5 ft 4 in Weight 104.1 kg Usual Body Weight 136 kg [place] Body Weight (kg) 54.54 BMI 39.4 Weight change and time frame 24% wt loss in 4 months Subjective/Other Information RN screen for MST and new onset DM/DKA. Pt stated she is getting her appetite back and ate bacaon and eggs for breakfast this AM. Pt stated she lost 40 lb in past 4 months. UBW is 300 lb. Burn Absent Trauma Absent Minimum of two criteria Yes Energy Intake (non-severe) <75% Estimated Energy Requirement >7 days Energy Intake (severe) < or equal to 50% Estimated Energy Requirement > or equal to 5 days Interpretation of Weight Loss (severe) >7.5% in 3 months #3 Nutrition Diagnosis Malnutrition Etiology DKA As Evidenced by Signs and Symptoms 24% weight loss in 4 months, pt eating less than 50% #2 Nutrition Diagnosis Inadequate oral intake Etiology decreased appetite secondary to DKA As Evidenced by Signs and Symptoms Pt eating less than 50% of meals #1 Nutrition Diagnosis Food and nutrition-related knowledge deficit Etiology No prior nutrition related DM education As Evidenced by Signs and Symptoms Pt needing DM education, BG 255, HgbA1c 15.5 Is patient on ventilator? No Is Patient Ambulatory and/or Out of Bed No REE-([place]-confined to bed) [phone] Kcal/Kg value to use for calculation 15 Approximate Energy Requirements Using 1562 kcal/Kg Calculation Used for Recommendations Kcal/kg Additional Notes Protein: 64-80g (0.8-1 g/kg adBW 80 kg) Fluids: 1 ml/kcal Nutrition Intervention Change Diet Order: Continue Consistent CHO Teaching Recipient Patient Learning Readiness Good Teaching Methods Discussion,Handout Response to Teaching Verbalize understanding Education Handouts Provided CHO Counting for People with Diabetes Goal #1 Meet at least 75% of energy and protein needs Anticipated Discharge Needs: Consistent CHO diet Follow-Up By: 07/27/19 Additional Comments F/U for PO intakes
[2019-07-25] MEDS: ROCEPHIN/NS 1 GM/50 ML 1 GM/50 ML BAG IV SCH (15:33)
[2019-07-25] MEDS: TESSALON PERLES PO SCH (23:16)
[2019-07-26 05:15] LABS: Hematocrit 38.8 % (30.3-42.9); Hemoglobin 13.3 gm/dl (10.1-14.3); Mean Corpuscular HGB Conc 34 % (30-34); Mean Corpuscular Volume 98 fl (79-97); Platelet Count 327 K/mm3 (140-440); Red Blood Count 3.98 M/mm3 (3.65-5.03); Red Cell Distribution Width 15.3 % (13.2-15.2)
[2019-07-26] MEDS: TESSALON PERLES PO SCH ×2 (05:17→13:01)
[2019-07-26 05:42] LABS: BUN/Creatinine Ratio 10; Blood Urea Nitrogen 10 mg/dL (7-17); Calcium 8.9 mg/dL (8.4-10.2); Hemolysis Index 3
[2019-07-26 06:22] LABS: Basophils % (Manual) 0 % (0.0-1.8); Total Cells Counted 100
[2019-07-26 06:24] LABS: Anisocytosis Few
[2019-07-26 06:25] LABS: Macrocytosis Rare; Platelet Estimate Consistent w Auto
[2019-07-26] MEDS ORDERED: K-DUR PO ONE ×2 (06:27→12:00)
[2019-07-26] MEDS: HumaLOG SUB-Q SCH ×2 (08:24→12:56)
--- NOTE | 2019-07-26 08:55 | Discharge Summary ---
Providers - Providers Date of Admission: 07/24/19 06:53 Date of discharge: 07/26/19 Attending physician: ALINE KRAUSE 07/24/19 02:51 Consult to Physician [CONS] Routine Comment: Consulting Provider: NIKOLAY WILLIS Physician Instructions: Reason For Exam: cc 07/24/19 22:21 Consult to Dietitian/Nutrition [CONS] Routine Physician Instructions: Reason For Exam: Reason for Consult: Diet education 07/24/19 22:51 PICC Line Insertion [Consult to PICC Line RN] [CONS] Urgent Reason For Exam: medication administration Type Line:: PICC 07/25/19 23:44 Consult to Wound/ET Nurse [CONS] Routine Reason For Exam: wound eval [facility] Reason for admission: dka, new dm Condition: Stable Hospital course: 58-year-old woman with no known medical problems came into emergency room for evaluation. She had not seen a doctor in 30 years. Patient reports that approximately 2 weeks ago she had been complaining of frequent urination which she attributed to a urinary tract infection. She reported drinking a lot of fluids and stated she also had weight loss. She also recalled increased thirst. The patient presented to the emergency room and was found to be in DKA. She was admitted to the ICU and placed on insulin infusion and also received IV fluids. After the patient's anion gap closed, she was transitioned to long- acting insulin 20 units 70/30 twice a day. The patient was transferred to the floor and BG was stabilized. Patient received diabetic teaching. Patient will discharge with same regimen and is to follow-up with her PCP. Discharge time 32 minutes. Disposition: - TO HOME OR SELFCARE Time spent for discharge: 32 - Discharge Diagnoses (1) Acute metabolic encephalopathy Status: Acute (2) DKA (diabetic ketoacidoses) Status: Acute Core Measure Documentation - Palliative Care Palliative Care/ Comfort Measures: Not Applicable - Core Measures Any of the following diagnoses?: none Exam - Constitutional Vitals: Temp Pulse Resp BP Pulse Ox 98.0 F 109 H 22 120/72 98 07/26/19 06:14 07/26/19 06:14 07/26/19 06:14 07/26/19 06:14 07/26/19 06:14 General appearance: Present: no acute distress, well-nourished - EENT Eyes: Present: PERRL ENT: hearing intact, clear oral mucosa - Neck Neck: Present: supple, normal ROM - Respiratory Respiratory effort: normal Respiratory: bilateral: CTA - Cardiovascular Heart Sounds: Present: S1 & S2. Absent: rub, click - Extremities Extremities: pulses symmetrical, No edema Peripheral Pulses: within normal limits - Abdominal General gastrointestinal: Present: soft, non-tender, non-distended, normal bowel sounds Female genitourinary: Present: normal - Integumentary Integumentary: Present: clear, warm, dry - Musculoskeletal Musculoskeletal: gait normal, strength equal bilaterally - Psychiatric Psychiatric: appropriate mood/affect, intact judgment & insight - Neurologic Neurologic: CNII-XII intact, moves all extremities Plan Activity: no restrictions Weight Bearing Status: Full Weight Bearing Diet: diabetic Prescriptions: Insulin NPH/Regular [NovoLIN 70/30] 20 unit SUB-Q BIDDIAB 30 Days units
[2019-07-26] MEDS: ROCEPHIN/NS 1 GM/50 ML 1 GM/50 ML BAG IV SCH (09:26)
[2019-07-26] MEDS: LOVENOX SUB-Q SCH (10:00)
[2019-07-26] MEDS: SODIUM CHLORIDE FLUSH SYRINGE 10 ML IV SCH (10:00)
[2019-07-26 17:35] VITALS: BP 120/86
== END 2019-07-26 15:45 | disposition home or self-care (01) | DRG 637 ==
LOC: ED 23:07 → CC1 07-24 06:53 → 3A 07-25 18:14
PROVIDERS: ADMIT Internal Medicine; ATTEND Hospitalist
DX: E11.10 Type 2 diabetes mellitus with ketoacidosis without coma (principal); N17.0 Acute kidney failure with tubular necrosis; G92 Toxic encephalopathy; N39.0 Urinary tract infection, site not specified; D68.9 Coagulation defect, unspecified; N17.9 Acute kidney failure, unspecified; E86.0 Dehydration; E66.9 Obesity, unspecified; Z68.39 Body mass index [BMI] 39.0-39.9, adult
CPT/HCPCS: 36415; 70450; 71045; 76770; 80048; 80076; 80307; 80320; 81001; 82010; 82140; 82805; 82962; 83036; 83735; 84100; 84443; 84484; 85007; 85025; 85610; 85730; 87040; 87086; 87116; 93005; 93010; G0378; G0480; J0696; J1650; J1815; J2060; J7030; J7040